=== PATIENT | female | born 1975 | race Caucasian/White ===

== ENCOUNTER 2018-06-09 23:59 | Emergency (ER) | payer SELFPAY ==
[2018-06-10] MEDS ORDERED: NA CHLORIDE 0.9% 1,000 ML ONE (00:37)
[2018-06-10] MEDS ORDERED: KETOROLAC 30 MG/ML INJ ONE ×2 (00:37→00:50)
[2018-06-10] MEDS ORDERED: ALBUTEROL 2.5 MG/3 ML NEB SOL ONE (00:37)
[2018-06-10 00:56] LABS: Absolute Monocytes 1.3 K/uL (0.1-1.3); Absolute Neutrophil 8.9 K/uL (1.8-8.0); Basophils % 0.4 % (0-1.3); Eosinophils % 1.4 % (0-4.4); Hematocrit 39.2 % (36.0-45.0); Lymphocytes % 15.8 % (15.3-44.8); MCH 27.7 pg (27.0-35.0); MCV 82.7 fL (80-100); MPV 9.5 fL (7.6-11.3); Monocytes % 10.3 % (3.3-12.3); RBC Red Blood Cell Count 4.74 M/uL (3.86-4.86)
[2018-06-10 01:22] LABS: Potassium 3.3 mmol/L (3.5-5.1)
--- NOTE | 2018-06-10 01:29 | ER ---
Nurse's Notes [facility] Name: Rosario Stover Age: 42 yrs Sex: Female : 1975 Arrival Date: 06/10/2018 Time: 00:02 Bed 16 Private MD: Diagnosis: Bronchitis, not specified as acute or chronic;Otitis media, unspecified, bilateral Presentation: 06/10 00:11 Presenting complaint: Patient states: she has headache, cough, chills ,nausea stomach mg2 cramps for 1 week now. she took tylenol 6 hours prior to arrival. Transition of care: patient was not received from another setting of care. Onset of symptoms was June 2018. Risk Assessment: Do you want to hurt yourself or someone else? Patient reports no desire to harm self or others. Initial Sepsis Screen: Does the patient meet any 2 criteria? No. Patient's initial sepsis screen is negative. Does the patient have a suspected source of infection? No. Patient's initial sepsis screen is negative. Care prior to arrival: None. 00:11 Method Of Arrival: Ambulatory mg2 00:11 Acuity: DEVYN 3 mg2 Triage Assessment: 00:18 General: Appears Behavior is calm, cooperative. Pain: Complains of pain in head. mg2 00:30 Headache History: Denies prior headaches. 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 - Social history:: Smoking status: Patient/guardian denies using tobacco, Patient/guardian denies using alcohol, street drugs, IV drugs. - Ebola Screening: : No symptoms or risks identified at this time. Screenin:18 Abuse screen: Denies threats or abuse. Denies injuries from another. Nutritional mg2 screening: No deficits noted. Tuberculosis screening: No symptoms or risk factors identified. Fall Risk None identified. Assessment: 00:15 General: Appears in no apparent distress. uncomfortable, Behavior is calm, cooperative. mg2 Pain: Complains of pain in head Pain does not radiate. Pain currently is 9 out of 10 on a pain scale. Quality of pain is described as aching, Pain began gradually, 1 week Is intermittent, Alleviated by medications, Also complains of shortness of breath. Neuro: Level of Consciousness is awake, alert, obeys commands, Oriented to person, place, time, situation. Cardiovascular: Capillary refill < 3 seconds Patient's skin is warm and dry. Respiratory: Airway is patent Respiratory effort is even, unlabored, Respiratory pattern is regular, symmetrical, cough Breath sounds are coarse in right upper lobe, left upper lobe and right posterior lower lobe Breath sounds with crackles. GI: Reports nausea. : No signs and/or symptoms were reported regarding the genitourinary system. EENT: No signs and/or symptoms were reported regarding the EENT system. Derm: Skin is intact, Skin is pink, warm \T\ dry. normal. Musculoskeletal: Circulation, motion, and sensation intact. 00:51 Reassessment: patient refused for iv insertion. mg2 01:26 Reassessment: Patient appears in no apparent distress at this time. Patient and/or mg2 family updated on plan of care and expected duration. Pain level reassessed. Patient is alert, oriented x 3, equal unlabored respirations, skin warm/dry/pink. Vital Signs: 00:15 BP 157 / 92; Pulse 106; Resp 20; Temp 98.1(O); Pulse Ox 100% on R/A; Weight 86.18 kg; mg2 Height 6 ft. 0 in. (182.88 cm); Pain 9/10; 01:24 BP 145 / 90; Pulse 103; Resp 18; Pulse Ox 100% on R/A; Pain 0/10; mg2 00:15 Body Mass Index 25.77 (86.18 kg, 182.88 cm) mg2 Ric Coma Score: 01:29 Eye Response: spontaneous(4). Verbal Response: oriented(5). Motor Response: obeys snw commands(6). Total: 15. ED Course: 00:02 Patient arrived in ED. ds1 00:11 Abad Mcbride, SMITA is Primary Nurse. mg2 00:13 Triage completed. mg2 00:15 Arm band placed on. mg2 00:16 Candi Pennington FNP-C is PHCP. snw 00:16 Aba Christian MD is Attending Physician. snw 00:18 Patient has correct armband on for positive identification. Call light in reach. Door mg2 closed. Warm blanket given. 01:47 No provider procedures requiring assistance completed. Patient did not have IV access mg2 during this emergency room visit. Administered Medications: 00:50 Not Given (Patient Refused): TORadol 30 mg IVP once mg2 00:50 Drug: Albuterol 2.5 mg Route: Inhalation; mg2 01:23 Follow up: Response: No adverse reaction; Marked relief of symptoms mg2 00:51 Not Given (Patient Refused): NS 0.9% 1000 ml IV at 1 bolus Per protocol; 1000 mL bolus mg2 00:52 Drug: TORadol 60 mg Route: IM; Site: left gluteus; mg2 01:24 Follow up: Response: No adverse reaction; Pain is decreased mg2 01:45 Drug: Zithromax 500 mg Route: PO; mg2 01:45 Follow up: Response: No adverse reaction; Medication administered at discharge. mg2 01:46 Drug: Potassium Effervescent Tablet 50 mEq Route: PO; mg2 01:46 Follow up: Response: No adverse reaction; Medication administered at discharge. mg2 01:46 Drug: Decadron 8 mg Route: PO; mg2 01:46 Follow up: Response: No adverse reaction; Medication administered at discharge. mg2 Outcome: 01:28 Discharge ordered by . sncintia 01:47 Discharged to home ambulatory. mg2 01:47 Condition: stable 01:47 Discharge instructions given to patient, Instructed on discharge instructions, follow up and referral plans. medication usage, Demonstrated understanding of instructions, follow-up care, medications, Prescriptions given X 2. 01:48 Patient left the ED. mg2 Signatures: Candi Pennington, ONEL-C MOBILE UI/UX DESIGNER-Judy Hernandez ds1 Abad Mcbride RN RN mg2 Corrections: (The following items were deleted from the chart) 00:14 00:11 Presenting complaint: Patient states: she has headache, cough, chills ,nausea mg2 stomach cramps for 1 week now. she took tylenol 6 hours prior to arrival. mg2
--- NOTE | 2018-06-10 01:29 | EDPHYS ---
Physician Documentation [facility] Name: Rosario Stover Age: 42 yrs Sex: Female : 1975 Arrival Date: 06/10/2018 Time: 00:02 Bed 16 Private MD: ED Physician Aba Christian HPI: 06/10 00:34 This 42 yrs old Female presents to ER via Ambulatory with complaints of snw Headache. 00:34 The patient complains of pain to the left side of the back of head and right side of snw the back of head. The patient describes the headache as a pressure. Onset: The symptoms/episode began/occurred gradually, and became persistent. Associated signs and symptoms: Pertinent positives: malaise, nausea. Severity of symptoms: At its worst the pain was moderate. The symptoms are alleviated by remaining still. The patient has experienced similar episodes in the past. The patient has not recently seen a physician. + sore throat. 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 - Social history:: Smoking status: Patient/guardian denies using tobacco, Patient/guardian denies using alcohol, street drugs, IV drugs. - Ebola Screening: : No symptoms or risks identified at this time. ROS: 00:33 Eyes: Negative for injury, pain, redness, and discharge, ENT: Negative for injury, snw pain, and discharge, Neck: Negative for injury, pain, and swelling, Cardiovascular: Negative for chest pain, palpitations, and edema. 00:33 Back: Negative for injury and pain, : Negative for injury, bleeding, discharge, and swelling, MS/Extremity: Negative for injury and deformity, Skin: Negative for injury, rash, and discoloration. 00:33 Constitutional: Positive for body aches, malaise. 00:33 Respiratory: Positive for cough. 00:33 Abdomen/GI: Positive for nausea. 00:33 Neuro: Positive for headache. Exam: 00:32 Constitutional: This is a well developed, well nourished patient who is awake, alert, snw and in no acute distress. Head/Face: Normocephalic, atraumatic. Eyes: Pupils equal round and reactive to light, extra-ocular motions intact. Lids and lashes normal. Conjunctiva and sclera are non-icteric and not injected. Cornea within normal limits. Periorbital areas with no swelling, redness, or edema. Neck: Trachea midline, no thyromegaly or masses palpated, and no cervical lymphadenopathy. Supple, full range of motion without nuchal rigidity, or vertebral point tenderness. No Meningismus. 00:32 Chest/axilla: Normal chest wall appearance and motion. Nontender with no deformity. No lesions are appreciated. 00:32 Respiratory: Lungs have equal breath sounds bilaterally, clear to auscultation and percussion. No rales, rhonchi or wheezes noted. No increased work of breathing, no retractions or nasal flaring. Abdomen/GI: Soft, non-tender, with normal bowel sounds. No distension or tympany. No guarding or rebound. No evidence of tenderness throughout. Back: No spinal tenderness. No costovertebral tenderness. Full range of motion. Skin: Warm, dry with normal turgor. Normal color with no rashes, no lesions, and no evidence of cellulitis. MS/ Extremity: Pulses equal, no cyanosis. Neurovascular intact. Full, normal range of motion. Neuro: Awake and alert, GCS 15, oriented to person, place, time, and situation. Cranial nerves II-XII grossly intact. Motor strength 5/5 in all extremities. Sensory grossly intact. Cerebellar exam normal. Normal gait. 00:32 ENT: External ear(s): are unremarkable, Ear canal(s): are normal, TM's: dullness, fluid levels, bilaterally, Nose: is normal, Mouth: is normal, Posterior pharynx: swelling, erythema, that is mild, that is moderate, Voice: is normal. 00:32 Cardiovascular: Rate: tachycardic, Rhythm: regular, Heart sounds: normal. Vital Signs: 00:15 BP 157 / 92; Pulse 106; Resp 20; Temp 98.1(O); Pulse Ox 100% on R/A; Weight 86.18 kg; mg2 Height 6 ft. 0 in. (182.88 cm); Pain 9/10; 01:24 BP 145 / 90; Pulse 103; Resp 18; Pulse Ox 100% on R/A; Pain 0/10; mg2 00:15 Body Mass Index 25.77 (86.18 kg, 182.88 cm) mg2 Oak Coma Score: 01:29 Eye Response: spontaneous(4). Verbal Response: oriented(5). Motor Response: obeys snw commands(6). Total: 15. MDM: 00:16 Patient medically screened. snw 01:29 Data reviewed: vital signs, nurses notes. Data interpreted: Pulse oximetry: on room air snw is 100 %. Interpretation: normal. Special discussion: I have referred the patient to see his PCP for further evaluation of high blood pressure. Based on the history and exam findings, there is no indication for further emergent testing or inpatient evaluation. I discussed with the patient/guardian the need to see the primary care provider for further evaluation of the symptoms. 06/10 00:32 Order name: Basic Metabolic Panel snw 06/10 00:32 Order name: CBC with Diff snw 06/10 00:32 Order name: Strep snw 06/10 00:32 Order name: Basic Metabolic Panel; Complete Time: 01:25 EDMS 06/10 00:32 Order name: CBC with Automated Diff; Complete Time: 00:57 EDMS 06/10 00:32 Order name: Group A Streptococcus Rapid Sc; Complete Time: 01:25 EDMS 06/10 01:13 Order name: Throat Culture EDMS 06/10 00:32 Order name: Labs collected and sent; Complete Time: 00:51 snw 06/10 00:37 Order name: PO challenge; Complete Time: 00:56 snw 06/10 00:37 Order name: Misc. Order: ice chips please; Complete Time: 00:50 snw 06/10 01:25 Order name: VS Recheck; Complete Time: 01:26 snw Administered Medications: 00:50 Not Given (Patient Refused): TORadol 30 mg IVP once mg2 00:50 Drug: Albuterol 2.5 mg Route: Inhalation; mg2 01:23 Follow up: Response: No adverse reaction; Marked relief of symptoms mg2 00:51 Not Given (Patient Refused): NS 0.9% 1000 ml IV at 1 bolus Per protocol; 1000 mL bolus mg2 00:52 Drug: TORadol 60 mg Route: IM; Site: left gluteus; mg2 01:24 Follow up: Response: No adverse reaction; Pain is decreased mg2 01:45 Drug: Zithromax 500 mg Route: PO; mg2 01:45 Follow up: Response: No adverse reaction; Medication administered at discharge. mg2 01:46 Drug: Potassium Effervescent Tablet 50 mEq Route: PO; mg2 01:46 Follow up: Response: No adverse reaction; Medication administered at discharge. mg2 01:46 Drug: Decadron 8 mg Route: PO; mg2 01:46 Follow up: Response: No adverse reaction; Medication administered at discharge. mg2 Disposition: 06:58 Co-signature as Attending Physician, Aba Christian MD. rn Disposition: 06/10/18 01:28 Discharged to Home. Impression: Bronchitis, not specified as acute or chronic, Otitis media, unspecified, bilateral. - Condition is Stable. - Discharge Instructions: Acute Bronchitis, Adult, Otitis Media, Adult, Hypertension, How to Use an Inhaler, Upper Respiratory Infection, Adult, Cool Mist Vaporizer, Rehydration, Adult. - Prescriptions for Prednisone 20 mg Oral Tablet - take 1 tablet by ORAL route 2 times per day for 5 days; 10 tablet. Zithromax 500 mg Oral Tablet - take 1 tablet by ORAL route once daily for 5 days; 5 tablet. - Work release form, Medication Reconciliation Form, Thank You Letter, Antibiotic Education, Prescription Opioid Use form. - Follow up: Private Physician; When: 2 - 3 days; Reason: Recheck today's complaints, Continuance of care, Re-evaluation by your physician. Follow up: Emergency Department; When: As needed; Reason: Worsening of condition. Signatures: Dispatcher [employer] EDMT Candi Pennington, ONEL-C MONOMER PURIFICATION OPERATOR-Csnw Aba Christian MD MD rn Gardose, Michele, RN RN mg2 Corrections: (The following items were deleted from the chart) 01:48 01:28 06/10/2018 01:28 Discharged to Home. Impression: Bronchitis, not specified as mg2 acute or chronic; Otitis media, unspecified, bilateral. Condition is Stable. Discharge Instructions: Acute Bronchitis, Adult, Otitis Media, Adult, Hypertension, How to Use an Inhaler, Upper Respiratory Infection, Adult, Cool Mist Vaporizer, Rehydration, Adult. Prescriptions for Prednisone 20 mg Oral Tablet - take 1 tablet by ORAL route 2 times per day for 5 days; 10 tablet, Zithromax 500 mg Oral Tablet - take 1 tablet by ORAL route once daily for 5 days; 5 tablet. and Forms are Work release form, Medication Reconciliation Form, Thank You Letter, Antibiotic Education, Prescription Opioid Use. Follow up: Private Physician; When: 2 - 3 days; Reason: Recheck today's complaints, Continuance of care, Re-evaluation by your physician. Follow up: Emergency Department; When: As needed; Reason: Worsening of condition. snw
[2018-06-10] MEDS ORDERED: POTASSIUM 25 MEQ EFFERV TAB ONE (01:32)
[2018-06-10] MEDS ORDERED: DEXAMETHASONE 4 MG TAB ONE (01:32)
[2018-06-10] MEDS ORDERED: AZITHROMYCIN 250 MG TAB ONE (01:35)
== END 2018-06-10 01:48 | disposition home or self-care (01) ==
LOC: ER 23:59
DX: J40 Bronchitis, not specified as acute or chronic (principal); H66.93 Otitis media, unspecified, bilateral; R51 Headache
CPT/HCPCS: 36415; 80048; 85025; 87070; 87081; 96372; 99284; J7030

== ENCOUNTER 2018-06-15 04:45 | Emergency (ER) | payer SELFPAY ==
--- NOTE | 2018-06-15 06:10 | EDPHYS ---
Physician Documentation [facility] Name: Rosario Stover Age: 42 yrs Sex: Female : 1975 Arrival Date: 06/15/2018 Time: 04:46 Bed 18 Private MD: ED Physician Natan Cassidy HPI: 06/15 06:12 This 42 yrs old Female presents to ER via Ambulatory with complaints of jmm tenderness to back of head, Dizziness, worsening of symptoms. 06:12 The patient complains of pain to the right base of the skull. The patient describes the jmm headache as aching, a pressure. Onset: The symptoms/episode began/occurred gradually, 1 week(s) ago. Associated signs and symptoms: Pertinent positives: cough, congestion, ear ache. This is a 42 year old female with a history of CHF that presents to the ED with cough, congestion beginning 1 week prior. Patient states she has finished a course of azithromycin without relief. Patient states she has now developed pain to the base of her skull and also complains of pressure behind her right eye. These symptoms were gradual on onset. Patient denies fever. . 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 - Social history:: Smoking status: Patient/guardian denies using tobacco. - Ebola Screening: : Patient negative for fever greater than or equal to 101.5 degrees Fahrenheit, and additional compatible Ebola Virus Disease symptoms. ROS: 06:12 Eyes: Negative for injury, pain, redness, and discharge. jmm 06:12 Cardiovascular: Negative for chest pain, palpitations, and edema. 06:12 Abdomen/GI: Negative for abdominal pain, nausea, vomiting, diarrhea, and constipation. 06:12 Constitutional: Positive for malaise. 06:12 ENT: Positive for ear pain. 06:12 Respiratory: Positive for cough. 06:12 Neuro: Positive for headache. 06:12 All other systems are negative. Exam: 06:12 Constitutional: This is a well developed, well nourished patient who is awake, alert, jmm and in no acute distress. Head/Face: atraumatic. 06:12 Chest/axilla: Normal chest wall appearance and motion. Cardiovascular: Regular rate and rhythm. No edema appreciated Respiratory: Normal respirations, no respiratory distress appreciated 06:12 Back: Normal ROM Skin: General appearance color normal MS/ Extremity: Moves all extremities, no obvious deformities appreciated, no edema noted to the lower extremities 06:12 ENT: TM's: erythema, that is moderate, on the right. 06:12 Neck: ROM/movement: pain is on flexion and right sided rotation. The patient is point tender along the SCM. . 06:12 Neuro: Orientation: is normal, Mentation: is normal, Memory: is normal, Cerebellar function: normal finger to nose testing, heel to woodruff testing is normal, Gait: is steady. 06:12 Psych: Behavior/mood is pleasant, cooperative. Vital Signs: 05:03 BP 137 / 90; Pulse 100; Resp 16 S; Temp 98.1(O); Pulse Ox 98% on R/A; Weight 88.45 kg jd3 (R); Height 5 ft. 11 in. (180.34 cm) (R); Pain 8/10; 05:48 BP 124 / 88; Pulse 87; Resp 17 S; Pulse Ox 96% on R/A; jd3 06:43 BP 123 / 84; Pulse 77; Resp 16 S; Pulse Ox 99% on R/A; jd3 05:03 Body Mass Index 27.20 (88.45 kg, 180.34 cm) jd3 MDM: 06:01 Patient medically screened. [facility] 06:30 Counseling: I had a detailed discussion with the patient and/or guardian regarding: the [facility] historical points, exam findings, and any diagnostic results supporting the discharge/admit diagnosis, the need for outpatient follow up, to return to the emergency department if symptoms worsen or persist or if there are any questions or concerns that arise at home. 06:30 Data reviewed: vital signs, nurses notes, lab test result(s). [facility] 06:30 Refusal of service: The patient/guardian displays adequate decision making capability [facility] and despite a detailed discussion of alternatives, benefits, risks, and consequences refuses: Lumbar Puncture procedure. 06/15 06:11 Order name: CT Head Brain wo Cont [facility] Administered Medications: No medications were administered Disposition: 19:03 Co-signature as Attending Physician, Natan Cassidy MD. arthur Disposition: 06/15/18 06:55 Discharged to Home. Impression: Acute serous otitis media, right ear, Strain of muscle, fascia and tendon at neck level, Headache. - Condition is Stable. - Discharge Instructions: Otitis Media, Adult, General Headache Without Cause. - Prescriptions for Augmentin 875- 125 mg Oral Tablet - take 1 tablet by ORAL route every 12 hours for 10 days; 20 tablet. - Medication Reconciliation Form, Thank You Letter, Antibiotic Education, Prescription Opioid Use form. - Follow up: Private Physician; When: 2 - 3 days; Reason: Recheck today's complaints, Continuance of care, Re-evaluation by your physician. Signatures: Dispatcher [employer] EDNatan Quintana MD MD pkl Mickail, Joel, PA PA jmm Munoz, Edgar, FLAME CHANNELER FLAME CHANNELER Aguila Johnson, RN RN jd3 Corrections: (The following items were deleted from the chart) 06:11 06:10 06/15/2018 06:10 Discharged to Home. Impression: Strain of muscle, fascia and jmm tendon at neck level; Acute serous otitis media. Condition is Stable. Forms are Medication Reconciliation Form, Thank You Letter, Antibiotic Education, Prescription Opioid Use. Follow up: Private Physician; When: 2 - 3 days; Reason: Recheck today's complaints, Continuance of care, Re-evaluation by your physician. brianna 07:02 06:55 06/15/2018 06:55 Discharged to Home. Impression: Acute serous otitis media, right em ear; Strain of muscle, fascia and tendon at neck level; Headache. Condition is Stable. Prescriptions for Augmentin 875-125 mg Oral Tablet - take 1 tablet by ORAL route every 12 hours for 10 days; 20 tablet. and Forms are Medication Reconciliation Form, Thank You Letter, Antibiotic Education, Prescription Opioid Use. Follow up: Private Physician; When: 2 - 3 days; Reason: Recheck today's complaints, Continuance of care, Re-evaluation by your physician. brianna 06:09 Data reviewed: vital signs, nurses notes, lab test result(s), brianna reed 06:09 Counseling: I had a detailed discussion with the patient and/or guardian jmm regarding: the historical points, exam findings, and any diagnostic results supporting the discharge/admit diagnosis, the need for outpatient follow up, to return to the emergency department if symptoms worsen or persist or if there are any questions or concerns that arise at home, brianna
--- NOTE | 2018-06-15 06:10 | ER ---
Nurse's Notes [facility] Name: Rosario Stover Age: 42 yrs Sex: Female : 1975 Arrival Date: 06/15/2018 Time: 04:46 Bed 18 Private MD: Diagnosis: Acute serous otitis media, right ear;Strain of muscle, fascia and tendon at neck level;Headache Presentation: 06/15 04:59 Presenting complaint: Patient states: "I was seen her on the with similar jd3 symptoms, but they have just gotten way worse. my right side of my head really hurts with my ear infection, I am having neck pain and neck stiffness. I have also been having this really bad cough. this is probably the longest and worst sinus infection I have ever had.". Transition of care: patient was not received from another setting of care. Onset of symptoms was June 09, 2018. Risk Assessment: Do you want to hurt yourself or someone else? Patient reports no desire to harm self or others. Initial Sepsis Screen: Does the patient meet any 2 criteria? HR > 90 bpm. Yes Does the patient have a suspected source of infection? No. Patient's initial sepsis screen is negative. Care prior to arrival: None. 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 - Social history:: Smoking status: Patient/guardian denies using tobacco. - Ebola Screening: : Patient negative for fever greater than or equal to 101.5 degrees Fahrenheit, and additional compatible Ebola Virus Disease symptoms. Screenin:07 Abuse screen: Denies threats or abuse. Nutritional screening: No deficits noted. jd3 Tuberculosis screening: No symptoms or risk factors identified. Fall Risk Ambulatory Aid- None/Bed Rest/Nurse Assist (0 pts). Gait- Normal/Bed Rest/Wheelchair (0 pts) Mental Status- Oriented to own ability (0 pts). Total Cochran Fall Scale indicates No Risk (0-24 pts). Assessment: 05:04 General: Appears in no apparent distress. uncomfortable, Behavior is calm, cooperative, jd3 appropriate for age. Pain: Complains of pain in head, right ear and neck Pain currently is 8 out of 10 on a pain scale. Quality of pain is described as aching, sharp. Neuro: Level of Consciousness is awake, alert, obeys commands, Oriented to person, place, time, situation, Appropriate for age. Cardiovascular: Capillary refill < 3 seconds Patient's skin is warm and dry. Respiratory: Reports cough that is Airway is patent Respiratory effort is even, unlabored, Respiratory pattern is regular, symmetrical, Breath sounds are clear bilaterally. GI: No signs and/or symptoms were reported involving the gastrointestinal system. : No signs and/or symptoms were reported regarding the genitourinary system. EENT: Tympanic membrane reddened on right ear Throat is clear is pink. Derm: Skin is intact, Skin is dry, Skin is normal, Skin temperature is warm. Musculoskeletal: Circulation, motion, and sensation intact. Range of motion: intact in all extremities. 05:48 Reassessment: Patient appears in no apparent distress at this time. Patient and/or jd3 family updated on plan of care and expected duration. Pain level reassessed. Patient is alert, oriented x 3, equal unlabored respirations, skin warm/dry/pink. waiting to be seen by provider. 06:42 Reassessment: Patient appears in no apparent distress at this time. Patient and/or jd3 family updated on plan of care and expected duration. Pain level reassessed. Patient is alert, oriented x 3, equal unlabored respirations, skin warm/dry/pink. waiting on CT results. 06:55 Reassessment: Patient appears in no apparent distress at this time. Patient and/or em family updated on plan of care and expected duration. Pain level reassessed. Patient is alert, oriented x 3, equal unlabored respirations, skin warm/dry/pink. Vital Signs: 05:03 BP 137 / 90; Pulse 100; Resp 16 S; Temp 98.1(O); Pulse Ox 98% on R/A; Weight 88.45 kg jd3 (R); Height 5 ft. 11 in. (180.34 cm) (R); Pain 8/10; 05:48 BP 124 / 88; Pulse 87; Resp 17 S; Pulse Ox 96% on R/A; jd3 06:43 BP 123 / 84; Pulse 77; Resp 16 S; Pulse Ox 99% on R/A; jd3 05:03 Body Mass Index 27.20 (88.45 kg, 180.34 cm) [facility] ED Course: 04:46 Patient arrived in ED. am2 04:54 Aguila Gillis, RN is Primary Nurse. jd3 05:02 Triage completed. jd3 05:04 Arm band placed on. jd3 05:07 Patient has correct armband on for positive identification. Bed in low position. Call [facility] light in reach. Side rails up X 1. 06:00 Mariano Edwards PA is PHCP. [facility] 06:00 Natan Cassidy MD is Attending Physician. jmm 06:[address] via wheelchair. kw1 06:30 CT Head Brain wo Cont In Process Unspecified. EDMS 06:32 CT completed. Patient tolerated procedure well. Patient moved back from CT. kw1 07:00 No provider procedures requiring assistance completed. Patient did not have IV access em during this emergency room visit. Administered Medications: No medications were administered Outcome: 06:10 Discharge ordered by MD. jm 06:55 Discharge ordered by MD. jm 07:00 Discharged to home ambulatory. em 07:00 Condition: good 07:00 Discharge instructions given to patient, family, Instructed on discharge instructions, follow up and referral plans. medication usage, Demonstrated understanding of instructions, follow-up care, medications, Prescriptions given X 1. 07:02 Patient left the ED. em Signatures: Dispatcher [employer] EDMN Mariano Edwards PA PA jmm Munoz, Edgar, POLITICAL REPORTER POLITICAL REPORTER em Dolly Paniagua am2 Aguila Gillis, RN RN Millicent Alvarez kw1
--- NOTE | 2018-06-15 09:29 | RAD REPORT ---
EXAM DESCRIPTION: CT - Head Brain Wo Cont - 06/15/2018 6:53 am CLINICAL HISTORY: Headache and dizziness COMPARISON: None. TECHNIQUE: Computed axial tomography of the head was obtained. IV contrast was not requested.A preli minary report was generated by virtual radiologic reviewed prior to this dictation All CT scans are performed using dose optimization technique as appropriate and may include automated exposure control or mA/KV adjustment according to patient size. FINDINGS: An intracranial bleed is not seen . The ventricles are normal in caliber. No extra-axial fluid collection is noted. Fluid within the sinuses/ mastoids is not seen. IMPRESSION: No acute intracranial abnormality is seen. If patient's symptoms persist MRI of the bra in would be recommended.
== END 2018-06-15 07:02 | disposition home or self-care (01) ==
LOC: ER 04:45
DX: H65.01 Acute serous otitis media, right ear (principal); S16.1XXA Strain of muscle, fascia and tendon at neck level, initial encounter; I50.9 Heart failure, unspecified
CPT/HCPCS: 70450; 99284